=== PATIENT | male | born 2000 | race Caucasian/White ===

== ENCOUNTER 2022-08-22 19:01 | Inpatient (IN) | payer OTHER ==
[~2022-08-22] VITALS: Ht 182.9 cm; Wt 72.3 kg
[2022-08-22] VITALS (13 sets, daily range): BP systolic 112–142; BP diastolic 64–99
[2022-08-22 19:49] LABS: BASO% 0.1 % (0-3); HEMATOCRIT 42.4 % (39.0-50.0); HEMOGLOBIN 15.4 g/dl (14.0-18.0); IMMATURE GRANULOCYTES 0.4 % (0.0-5.0); LYMPH% 3.6 % (15-41); MEAN CELL VOLUME 83.1 fL CALC (80.0-100.0); MEAN CORPUSCULAR HGB 30.2 pG CALC (26.0-32.0); MEAN CORPUSCULAR HGB CONC 36.3 g/dL CAL (32.0-36.0); MONO% 2.4 % (2-13); NEUT# 19.27 thou/uL (1.82-7.42); NEUT% 93.5 % (42-76); RED BLOOD COUNT 5.1 mill/uL (4.70-6.10); RED CELL DISTRI WIDTH 12.1 % (11.5-15.5)
[2022-08-22 20:02] LABS: ALBUMIN 5.7 g/dL (3.2-5.0); ALKALINE PHOSPHATASE 43 u/l (38-126); AMYLASE 51 u/l (30-110); ANION GAP 22 (6-22 (CALC)); BILIRUBIN, TOTAL 1.9 mg/dL (0.2-1.3); BUN 11 mg/dL (9-20); BUN/CREATININE RATIO 15 (12-20 (CALC)); CARBON DIOXIDE 17 mmol/l (22-30); CHLORIDE 103 mmol/l (95-108); CREATININE 0.8 mg/dL (0.7-1.3); GFR FOR AFR.AMER. > 60 ML/MIN (>=60 (CALC)); GFR OTHER RACES > 60 ML/MIN (>=60 (CALC)); LIPASE 20 u/l (23-300); POTASSIUM 3.4 mmol/l (3.5-5.1); SGOT/AST 38 u/l (17-59); SODIUM 139 mmol/l (137-146)
[2022-08-22 21:36] LABS: URINE BILIRUBIN - DIPSTICK NEGATIVE (NEGATIVE); URINE BLOOD DIPSTICK NEGATIVE (NEGATIVE); URINE COLOR YELLOW; URINE GLUCOSE - DIPSTICK NEGATIVE (NEGATIVE); URINE KETONE 15 mg/dL (NEGATIVE); URINE LEUK ESTERASE NEGATIVE (NEGATIVE); URINE PROTEIN - DIPSTICK NEGATIVE (NEG-TRACE); URINE SPECIFIC GRAVITY 1.015; URINE UROBILINOGEN - DIPSTICK 0.2 E.U./dL (0.2)
[2022-08-22 21:42] LABS: URINE NITRITE - DIPSTICK NEGATIVE (Negative)
[2022-08-23] VITALS (22 sets, daily range): BP systolic 119–148; BP diastolic 66–109
[2022-08-23] MEDS ORDERED: SERTRALINE50 MG PO (01:26)
[2022-08-23 10:10] LABS: BASO% 0.1 % (0-3); HEMATOCRIT 40.5 % (39.0-50.0); IMMATURE GRANULOCYTES 0.3 % (0.0-5.0); LYMPH% 10.3 % (15-41); MEAN CELL VOLUME 86.2 fL CALC (80.0-100.0); MEAN CORPUSCULAR HGB 29.8 pG CALC (26.0-32.0); MEAN CORPUSCULAR HGB CONC 34.6 g/dL CAL (32.0-36.0); MONO% 6.7 % (2-13); NEUT# 12.55 thou/uL (1.82-7.42); NEUT% 82.6 % (42-76); RED BLOOD COUNT 4.7 mill/uL (4.70-6.10); RED CELL DISTRI WIDTH 12.6 % (11.5-15.5)
[2022-08-23 10:20] LABS: ALBUMIN 4.8 g/dL (3.2-5.0); ALKALINE PHOSPHATASE 37 u/l (38-126); ANION GAP 13 (6-22 (CALC)); BILIRUBIN, TOTAL 2.2 mg/dL (0.2-1.3); BUN 8 mg/dL (9-20); BUN/CREATININE RATIO 11 (12-20 (CALC)); CARBON DIOXIDE 20 mmol/l (22-30); CHLORIDE 111 mmol/l (95-108); CREATININE 0.8 mg/dL (0.7-1.3); GFR FOR AFR.AMER. > 60 ML/MIN (>=60 (CALC)); GFR OTHER RACES > 60 ML/MIN (>=60 (CALC)); POTASSIUM 3.9 mmol/l (3.5-5.1); SGOT/AST 21 u/l (17-59); SODIUM 139 mmol/l (137-146); TOTAL PROTEIN 7.4 g/dL (6.3-8.2)
[2022-08-24 03:42] VITALS: BP 135/84
[2022-08-24 04:00] VITALS: BP 135/84
[2022-08-24 05:44] LABS: BASO% 0.2 % (0-3); HEMOGLOBIN 13.7 g/dl (14.0-18.0); IMMATURE GRANULOCYTES 0.5 % (0.0-5.0); LYMPH% 7.6 % (15-41); MEAN CELL VOLUME 86.6 fL CALC (80.0-100.0); MEAN CORPUSCULAR HGB 29.7 pG CALC (26.0-32.0); MEAN CORPUSCULAR HGB CONC 34.3 g/dL CAL (32.0-36.0); MONO% 4.6 % (2-13); NEUT# 10.72 thou/uL (1.82-7.42); NEUT% 87.1 % (42-76); RED BLOOD COUNT 4.62 mill/uL (4.70-6.10); RED CELL DISTRI WIDTH 12.8 % (11.5-15.5)
[2022-08-24 06:39] VITALS: BP 108/69
[2022-08-24 07:04] LABS: ALBUMIN 4.9 g/dL (3.2-5.0); ALKALINE PHOSPHATASE 35 u/l (38-126); ANION GAP 15 (6-22 (CALC)); BUN 14 mg/dL (9-20); BUN/CREATININE RATIO 17 (12-20 (CALC)); CARBON DIOXIDE 20 mmol/l (22-30); CHLORIDE 107 mmol/l (95-108); CREATININE 0.8 mg/dL (0.7-1.3); GFR FOR AFR.AMER. > 60 ML/MIN (>=60 (CALC)); GFR OTHER RACES > 60 ML/MIN (>=60 (CALC)); POTASSIUM 3.9 mmol/l (3.5-5.1); SGOT/AST 28 u/l (17-59); SODIUM 138 mmol/l (137-146); TOTAL PROTEIN 7.6 g/dL (6.3-8.2)
[2022-08-24 07:07] LABS: BILIRUBIN, TOTAL 3.3 mg/dL (0.2-1.3)
[2022-08-24 11:19] VITALS: BP 119/72
[2022-08-24 16:46] VITALS: BP 150/85
[2022-08-24 18:56] VITALS: BP 139/85
[2022-08-25 03:52] VITALS: BP 129/79
[2022-08-25 06:03] LABS: BASO% 0.5 % (0-3); EOS% 0.8 % (0-8); HEMATOCRIT 40.1 % (39.0-50.0); IMMATURE GRANULOCYTES 0.9 % (0.0-5.0); LYMPH% 25.1 % (15-41); MEAN CELL VOLUME 86.8 fL CALC (80.0-100.0); MEAN CORPUSCULAR HGB 30.3 pG CALC (26.0-32.0); MEAN CORPUSCULAR HGB CONC 34.9 g/dL CAL (32.0-36.0); MONO% 8.9 % (2-13); NEUT# 6.42 thou/uL (1.82-7.42); NEUT% 63.8 % (42-76); RED BLOOD COUNT 4.62 mill/uL (4.70-6.10); RED CELL DISTRI WIDTH 12.4 % (11.5-15.5)
[2022-08-25 06:26] LABS: ALBUMIN 4.5 g/dL (3.2-5.0); ALKALINE PHOSPHATASE 33 u/l (38-126); ANION GAP 12 (6-22 (CALC)); BILIRUBIN, TOTAL 3.8 mg/dL (0.2-1.3); BUN 13 mg/dL (9-20); BUN/CREATININE RATIO 17 (12-20 (CALC)); CARBON DIOXIDE 22 mmol/l (22-30); CHLORIDE 107 mmol/l (95-108); CREATININE 0.8 mg/dL (0.7-1.3); GFR FOR AFR.AMER. > 60 ML/MIN (>=60 (CALC)); GFR OTHER RACES > 60 ML/MIN (>=60 (CALC)); POTASSIUM 3.4 mmol/l (3.5-5.1); SGOT/AST 23 u/l (17-59); SODIUM 138 mmol/l (137-146)
[2022-08-25 06:40] VITALS: BP 138/81
[2022-08-25 14:52] VITALS: BP 107/50
[2022-08-25 19:11] VITALS: BP 121/77
[2022-08-26 05:08] VITALS: BP 109/69
[2022-08-26 05:47] LABS: BASO% 0.4 % (0-3); EOS% 1.7 % (0-8); HEMATOCRIT 41.6 % (39.0-50.0); HEMOGLOBIN 14.6 g/dl (14.0-18.0); IMMATURE GRANULOCYTES 1.1 % (0.0-5.0); LYMPH% 27.9 % (15-41); MEAN CELL VOLUME 86.8 fL CALC (80.0-100.0); MEAN CORPUSCULAR HGB 30.5 pG CALC (26.0-32.0); MEAN CORPUSCULAR HGB CONC 35.1 g/dL CAL (32.0-36.0); MONO% 8.3 % (2-13); NEUT# 5.54 thou/uL (1.82-7.42); NEUT% 60.6 % (42-76); RED BLOOD COUNT 4.79 mill/uL (4.70-6.10); RED CELL DISTRI WIDTH 12.2 % (11.5-15.5)
[2022-08-26 06:16] VITALS: BP 109/60
[2022-08-26 06:21] LABS: ALBUMIN 4.7 g/dL (3.2-5.0); ALKALINE PHOSPHATASE 30 u/l (38-126); ANION GAP 11 (6-22 (CALC)); BILIRUBIN, TOTAL 3.7 mg/dL (0.2-1.3); BUN 11 mg/dL (9-20); BUN/CREATININE RATIO 14 (12-20 (CALC)); CHLORIDE 103 mmol/l (95-108); CREATININE 0.8 mg/dL (0.7-1.3); GFR FOR AFR.AMER. > 60 ML/MIN (>=60 (CALC)); GFR OTHER RACES > 60 ML/MIN (>=60 (CALC)); POTASSIUM 3.2 mmol/l (3.5-5.1); SGOT/AST 24 u/l (17-59); SODIUM 139 mmol/l (137-146); TOTAL PROTEIN 7.4 g/dL (6.3-8.2)
[2022-08-26 06:23] LABS: CARBON DIOXIDE 28 mmol/l (22-30)
[2022-08-26 14:24] VITALS: BP 121/81
== END 2022-08-26 14:31 | disposition home or self-care (01) | DRG 872 ==
LOC: ED 19:01 → ED-I 08-23 00:29 → ED 08-23 00:54 → MS2 08-23 00:55
PROVIDERS: Emergency Medicine; Nurse Practitioner Family; ADMIT Internal Medicine; ATTEND Internal Medicine
DX: A41.9 Sepsis, unspecified organism (principal); E87.20 Acidosis, unspecified; R11.2 Nausea with vomiting, unspecified; F12.90 Cannabis use, unspecified, uncomplicated; Z20.822 Contact with and (suspected) exposure to COVID-19
CPT/HCPCS: Q9967; S0164

== ENCOUNTER 2022-11-11 20:17 | Emergency (ER) | payer OTHER ==
[~2022-11-11] VITALS: Ht 182.9 cm; Wt 58.0 kg
[2022-11-11] VITALS (10 sets, daily range): BP systolic 113–136; BP diastolic 64–91
[~2022-11-11 20:17] MED LIST: SERTRALINE50 MG PO
[2022-11-11 21:49] LABS: BASO% 0.2 % (0-3); IMMATURE GRANULOCYTES 0.4 % (0.0-5.0); LYMPH% 6.2 % (15-41); MEAN CELL VOLUME 84.5 fL CALC (80.0-100.0); MEAN CORPUSCULAR HGB 28.9 pG CALC (26.0-32.0); MEAN CORPUSCULAR HGB CONC 34.2 g/dL CAL (32.0-36.0); MONO% 4.1 % (2-13); NEUT# 15.13 thou/uL (1.82-7.42); NEUT% 89.1 % (42-76); RED BLOOD COUNT 5.74 mill/uL (4.70-6.10); RED CELL DISTRI WIDTH 11.9 % (11.5-15.5)
[2022-11-11 21:52] LABS: HEMATOCRIT 48.5 % (39.0-50.0); HEMOGLOBIN 16.6 g/dl (14.0-18.0)
[2022-11-11 21:59] LABS: ALBUMIN 5.4 g/dL (3.2-5.0); ALKALINE PHOSPHATASE 52 u/l (38-126); AMYLASE 55 u/l (30-110); ANION GAP 20 (6-22 (CALC)); BILIRUBIN, TOTAL 1.9 mg/dL (0.2-1.3); BUN 10 mg/dL (9-20); BUN/CREATININE RATIO 11 (12-20 (CALC)); CARBON DIOXIDE 19 mmol/l (22-30); CHLORIDE 104 mmol/l (95-108); CREATININE 0.9 mg/dL (0.7-1.3); GFR FOR AFR.AMER. > 60 ML/MIN (>=60 (CALC)); GFR OTHER RACES > 60 ML/MIN (>=60 (CALC)); LIPASE 32 u/l (23-300); POTASSIUM 3.6 mmol/l (3.5-5.1); SGOT/AST 30 u/l (17-59); SODIUM 139 mmol/l (137-146); TOTAL PROTEIN 8.9 g/dL (6.3-8.2)
[2022-11-11] MEDS ORDERED: COMPAZINE10 MG PO (23:47)
[2022-11-11] MEDS ORDERED: DICYCLOMINE10 MG PO (23:47)
[2022-11-12] VITALS: BP 110/64
== END 2022-11-12 00:07 | disposition home or self-care (01) ==
LOC: ED 20:17
PROVIDERS: Family Medicine
DX: R11.2 Nausea with vomiting, unspecified (principal); F12.10 Cannabis abuse, uncomplicated
CPT/HCPCS: S0164

== ENCOUNTER 2023-01-17 04:09 | Emergency (ER) | payer SELFPAY ==
[~2023-01-17] VITALS: Ht 182.9 cm; Wt 72.8 kg
[~2023-01-17 04:09] MED LIST changes: +COMPAZINE10 MG PO; +DICYCLOMINE10 MG PO
[2023-01-17] MEDS ORDERED: OMEPRAZOLE20 MG PO (04:24)
[2023-01-17 05:02] LABS: BASO% 0.3 % (0-3); EOS% 0.3 % (0-8); HEMATOCRIT 43.7 % (39.0-50.0); HEMOGLOBIN 15.3 g/dl (14.0-18.0); IMMATURE GRANULOCYTES 0.4 % (0.0-5.0); LYMPH% 18.1 % (15-41); MEAN CELL VOLUME 83.6 fL CALC (80.0-100.0); MEAN CORPUSCULAR HGB 29.3 pG CALC (26.0-32.0); MONO% 8.3 % (2-13); NEUT# 8.44 thou/uL (1.82-7.42); NEUT% 72.6 % (42-76); RED BLOOD COUNT 5.23 mill/uL (4.70-6.10); RED CELL DISTRI WIDTH 12.1 % (11.5-15.5)
[2023-01-17 05:06] LABS: ALBUMIN 5.4 g/dL (3.2-5.0); ALKALINE PHOSPHATASE 42 u/l (38-126); ANION GAP 20 (6-22 (CALC)); BUN 14 mg/dL (9-20); BUN/CREATININE RATIO 15 (12-20 (CALC)); CARBON DIOXIDE 22 mmol/l (22-30); CHLORIDE 97 mmol/l (95-108); CREATININE 0.9 mg/dL (0.7-1.3); GFR FOR AFR.AMER. > 60 ML/MIN (>=60 (CALC)); GFR OTHER RACES > 60 ML/MIN (>=60 (CALC)); LIPASE 21 u/l (23-300); POTASSIUM 3.4 mmol/l (3.5-5.1); SGOT/AST 27 u/l (17-59); SODIUM 136 mmol/l (137-146); TOTAL PROTEIN 8.5 g/dL (6.3-8.2)
[2023-01-17 05:18] LABS: BILIRUBIN, TOTAL 3.7 mg/dL (0.2-1.3)
[2023-01-17] MEDS ORDERED: DICYCLOMINE10 MG PO (06:52)
[2023-01-17] MEDS ORDERED: PHENERGAN25 MG RE (06:52)
[2023-01-17 07:35] VITALS: BP 133/90
== END 2023-01-17 07:40 | disposition home or self-care (01) | DRG 392 ==
LOC: ED 04:09
PROVIDERS: Family Medicine
DX: R11.2 Nausea with vomiting, unspecified (principal); F12.90 Cannabis use, unspecified, uncomplicated
CPT/HCPCS: S0164

== ENCOUNTER 2023-02-09 08:17 | Emergency (ER) | payer SELFPAY ==
[~2023-02-09] VITALS: Ht 182.9 cm; Wt 70.3 kg
[2023-02-09] VITALS (10 sets, daily range): BP systolic 108–139; BP diastolic 66–88
[~2023-02-09 08:17] MED LIST changes: +OMEPRAZOLE DR40 MG PO; +OMEPRAZOLE20 MG PO; +PHENERGAN25 MG RE
[2023-02-09 09:02] LABS: BASO% 0.2 % (0-3); EOS% 0.1 % (0-8); HEMATOCRIT 46.8 % (39.0-50.0); HEMOGLOBIN 16.1 g/dl (14.0-18.0); IMMATURE GRANULOCYTES 0.6 % (0.0-5.0); LYMPH% 13.2 % (15-41); MEAN CELL VOLUME 83.1 fL CALC (80.0-100.0); MEAN CORPUSCULAR HGB 28.6 pG CALC (26.0-32.0); MEAN CORPUSCULAR HGB CONC 34.4 g/dL CAL (32.0-36.0); NEUT# 9.67 thou/uL (1.82-7.42); NEUT% 78.9 % (42-76); RED BLOOD COUNT 5.63 mill/uL (4.70-6.10)
[2023-02-09 09:31] LABS: ALBUMIN 5.3 g/dL (3.2-5.0); ALKALINE PHOSPHATASE 40 u/l (38-126); ANION GAP 16 (6-22 (CALC)); BUN 13 mg/dL (9-20); BUN/CREATININE RATIO 14 (12-20 (CALC)); CHLORIDE 96 mmol/l (95-108); CREATININE 0.9 mg/dL (0.7-1.3); GFR FOR AFR.AMER. > 60 ML/MIN (>=60 (CALC)); GFR OTHER RACES > 60 ML/MIN (>=60 (CALC)); LIPASE 18 u/l (23-300); POTASSIUM 3.3 mmol/l (3.5-5.1); SGOT/AST 43 u/l (17-59); SODIUM 136 mmol/l (137-146); TOTAL PROTEIN 8.7 g/dL (6.3-8.2)
[2023-02-09 09:37] LABS: CARBON DIOXIDE 27 mmol/l (22-30)
[2023-02-09 09:54] LABS: URINE BILIRUBIN - DIPSTICK NEGATIVE (NEGATIVE); URINE BLOOD DIPSTICK NEGATIVE (NEGATIVE); URINE COLOR YELLOW; URINE GLUCOSE - DIPSTICK NEGATIVE (NEGATIVE); URINE KETONE Negative (NEGATIVE); URINE LEUK ESTERASE NEGATIVE (NEGATIVE); URINE NITRITE - DIPSTICK NEGATIVE (Negative); URINE PROTEIN - DIPSTICK NEGATIVE (NEG-TRACE); URINE SPECIFIC GRAVITY 1.015; URINE UROBILINOGEN - DIPSTICK 0.2 E.U./dL (0.2)
== END 2023-02-09 11:58 | disposition home or self-care (01) | DRG 392 ==
LOC: ED 08:17
PROVIDERS: Family Medicine
DX: R11.2 Nausea with vomiting, unspecified (principal); F12.10 Cannabis abuse, uncomplicated; Z20.822 Contact with and (suspected) exposure to COVID-19

== ENCOUNTER 2023-03-19 07:31 | Emergency (ER) | payer SELFPAY ==
[~2023-03-19] VITALS: Ht 182.9 cm; Wt 68.0 kg
[2023-03-19] VITALS (16 sets, daily range): BP systolic 110–143; BP diastolic 64–93
[2023-03-19 08:09] LABS: BASO% 0.2 % (0-3); EOS% 0.1 % (0-8); HEMATOCRIT 45.1 % (39.0-50.0); HEMOGLOBIN 16.4 g/dl (14.0-18.0); IMMATURE GRANULOCYTES 0.3 % (0.0-5.0); MEAN CELL VOLUME 81.9 fL CALC (80.0-100.0); MEAN CORPUSCULAR HGB 29.8 pG CALC (26.0-32.0); MEAN CORPUSCULAR HGB CONC 36.4 g/dL CAL (32.0-36.0); MONO% 8.3 % (2-13); NEUT# 10.53 thou/uL (1.82-7.42); NEUT% 82.1 % (42-76); RED BLOOD COUNT 5.51 mill/uL (4.70-6.10)
[2023-03-19 08:51] LABS: ALBUMIN 5.2 g/dL (3.2-5.0); ALKALINE PHOSPHATASE 42 u/l (38-126); ANION GAP 19 (6-22 (CALC)); BILIRUBIN, TOTAL 3.2 mg/dL (0.2-1.3); BUN 13 mg/dL (9-20); BUN/CREATININE RATIO 15 (12-20 (CALC)); CARBON DIOXIDE 22 mmol/l (22-30); CHLORIDE 95 mmol/l (95-108); CREATININE 0.8 mg/dL (0.7-1.3); GFR FOR AFR.AMER. > 60 ML/MIN (>=60 (CALC)); GFR OTHER RACES > 60 ML/MIN (>=60 (CALC)); LIPASE 16 u/l (23-300); POTASSIUM 3.5 mmol/l (3.5-5.1); SGOT/AST 29 u/l (17-59); SODIUM 132 mmol/l (137-146); TOTAL PROTEIN 8.5 g/dL (6.3-8.2)
[2023-03-19 09:41] LABS: URINE BILIRUBIN - DIPSTICK Negative (NEGATIVE); URINE BLOOD DIPSTICK Negative (NEGATIVE); URINE GLUCOSE - DIPSTICK Negative (NEGATIVE); URINE KETONE Trace mg/dL (NEGATIVE); URINE LEUK ESTERASE Negative (NEGATIVE); URINE NITRITE - DIPSTICK Negative (Negative); URINE PROTEIN - DIPSTICK Negative (NEG-TRACE); URINE UROBILINOGEN - DIPSTICK 0.2 E.U./dL (0.2)
[2023-03-19 09:42] LABS: URINE COLOR Yellow
[2023-03-19] MEDS ORDERED: OMEPRAZOLE DR40 MG PO (10:34)
[2023-03-19] MEDS ORDERED: PROMETHAZINE HY25 M1 PO (10:34)
== END 2023-03-19 11:27 | disposition home or self-care (01) | DRG 392 ==
LOC: ED 07:31
PROVIDERS: Family Medicine
DX: R10.84 Generalized abdominal pain (principal); Z20.822 Contact with and (suspected) exposure to COVID-19
CPT/HCPCS: Q9967; S0164

== ENCOUNTER 2023-08-23 12:58 | Emergency (ER) | payer SELFPAY ==
[~2023-08-23] VITALS: Ht 182.9 cm; Wt 73.0 kg
[2023-08-23] VITALS (13 sets, daily range): BP systolic 112–137; BP diastolic 63–96
[~2023-08-23 12:58] MED LIST changes: +PROMETHAZINE HY25 M1 PO
[2023-08-23 13:40] LABS: BASO% 0.1 % (0-3); EOS% 0.3 % (0-8); HEMATOCRIT 47.5 % (39.0-50.0); HEMOGLOBIN 16.8 g/dl (14.0-18.0); IMMATURE GRANULOCYTES 0.6 % (0.0-5.0); LYMPH% 15.7 % (15-41); MEAN CELL VOLUME 82.8 fL CALC (80.0-100.0); MEAN CORPUSCULAR HGB 29.3 pG CALC (26.0-32.0); MEAN CORPUSCULAR HGB CONC 35.4 g/dL CAL (32.0-36.0); MONO% 11.6 % (2-13); NEUT# 10.16 thou/uL (1.82-7.42); NEUT% 71.7 % (42-76); RED BLOOD COUNT 5.74 mill/uL (4.70-6.10); RED CELL DISTRI WIDTH 11.8 % (11.5-15.5)
[2023-08-23 13:48] LABS: ALBUMIN 5.3 g/dL (3.2-5.0); ALKALINE PHOSPHATASE 42 u/l (38-126); ANION GAP 15 (6-22 (CALC)); BILIRUBIN, TOTAL 3.2 mg/dL (0.2-1.3); BUN 14 mg/dL (9-20); BUN/CREATININE RATIO 17 (12-20 (CALC)); CARBON DIOXIDE 26 mmol/l (22-30); CHLORIDE 94 mmol/l (95-108); CREATININE 0.8 mg/dL (0.7-1.3); GFR FOR AFR.AMER. > 60 ML/MIN (>=60 (CALC)); GFR OTHER RACES > 60 ML/MIN (>=60 (CALC)); LIPASE 22 u/l (23-300); POTASSIUM 3.4 mmol/l (3.5-5.1); SGOT/AST 26 u/l (17-59); SODIUM 132 mmol/l (137-146); TOTAL PROTEIN 8.3 g/dL (6.3-8.2)
[2023-08-23 15:31] LABS: URINE BILIRUBIN - DIPSTICK Negative (NEGATIVE); URINE BLOOD DIPSTICK Negative (NEGATIVE); URINE COLOR Yellow; URINE GLUCOSE - DIPSTICK Negative (NEGATIVE); URINE KETONE Negative (NEGATIVE); URINE LEUK ESTERASE Negative (NEGATIVE); URINE NITRITE - DIPSTICK Negative (Negative); URINE PROTEIN - DIPSTICK Negative (NEG-TRACE)
[2023-08-23] MEDS ORDERED: REGLAN10 MG PO (16:35)
[2023-08-23] MEDS ORDERED: PHENERGAN25 MG RE (16:35)
== END 2023-08-23 16:55 | disposition home or self-care (01) | DRG 392 ==
LOC: ED 12:58
PROVIDERS: Family Medicine
DX: R11.2 Nausea with vomiting, unspecified (principal); F12.90 Cannabis use, unspecified, uncomplicated
CPT/HCPCS: S0164

== ENCOUNTER 2023-09-23 15:51 | Emergency (ER) | payer SELFPAY ==
[~2023-09-23 15:51] MED LIST changes: +REGLAN10 MG PO
== END 2023-09-23 17:15 | disposition left against medical advice (07) | DRG 951 ==
LOC: ED 15:51 → LWOBS 17:14 → ED 17:14
DX: Z53.21 Procedure and treatment not carried out due to patient leaving prior to being seen by health care provider (principal)

== ENCOUNTER 2024-07-30 16:58 | Emergency (ER) | payer OTHER ==
[2024-07-30] VITALS (17 sets, daily range): BP systolic 97–137; BP diastolic 42–96
[~2024-07-30] VITALS: Ht 180.3 cm; Wt 72.5 kg
[2024-07-30] MEDS ORDERED: KETOROLAC TROMETHAMINE 30 MG/ML SDV IV STA (19:32)
[2024-07-30] MEDS ORDERED: SODIUM CHLORIDE 0.9% 1,000 ML IV STA (19:32)
[2024-07-30] MEDS ORDERED: METOCLOPRAMIDE HCL 10 MG/2 ML SDV IV ONE (19:35)
[2024-07-30 19:50] LABS: HEMATOCRIT 47.4 % (39.0-50.0); HEMOGLOBIN 16.7 g/dl (14.0-18.0); IMMATURE GRANULOCYTES 0.5 % (0.0-5.0); LYMPH% 3.9 % (15-41); MEAN CELL VOLUME 81.9 fL CALC (80.0-100.0); MEAN CORPUSCULAR HGB 28.8 pG CALC (26.0-32.0); MEAN CORPUSCULAR HGB CONC 35.2 g/dL CAL (32.0-36.0); MONO% 2.5 % (2-13); NEUT# 22.65 thou/uL (1.82-7.42); NEUT% 93.1 % (42-76); RED BLOOD COUNT 5.79 mill/uL (4.70-6.10); RED CELL DISTRI WIDTH 12.3 % (11.5-15.5)
[2024-07-30] MEDS ORDERED: SODIUM CHLORIDE 0.9% 1,000 ML IV ONE (20:15)
[2024-07-30 20:19] LABS: ALKALINE PHOSPHATASE 45 u/l (38-126); BILIRUBIN, TOTAL 1.5 mg/dL (0.2-1.3); BUN 23 mg/dL (9-20); BUN/CREATININE RATIO 18 (12-20 (CALC)); CARBON DIOXIDE 23 mmol/l (22-30); CHLORIDE 100 mmol/l (95-108); CREATININE 1.3 mg/dL (0.7-1.3); ESTIMATED GFR 79 ML/MIN (>=90 (CALC)); LIPASE 25 u/l (23-300); POTASSIUM 4.4 mmol/l (3.5-5.1); SGOT/AST 31 u/l (17-59)
[2024-07-30 20:37] LABS: ALBUMIN > 6.0 g/dL (3.2-5.0); ANION GAP 25 (6-22 (CALC)); SODIUM 144 mmol/l (137-146); TOTAL PROTEIN 10.3 g/dL (6.3-8.2)
[2024-07-30] MEDS ORDERED: PROMETHAZINE12.5 MG PO (22:43)
[2024-07-30] MEDS ORDERED: METRONIDAZOLE500 MG PO (22:45)
[2024-07-30] MEDS ORDERED: CIPROFLOXACN500 MG PO (22:45)
[2024-07-30 22:53] LABS: URINE BILIRUBIN - DIPSTICK Negative (NEGATIVE); URINE BLOOD DIPSTICK Negative (NEGATIVE); URINE GLUCOSE - DIPSTICK Negative (NEGATIVE); URINE KETONE 15 mg/dL (NEGATIVE); URINE LEUK ESTERASE Negative (NEGATIVE); URINE NITRITE - DIPSTICK Negative (Negative); URINE PH 6.5 (4.5-8.0); URINE PROTEIN - DIPSTICK 100 mg/dL (NEG-TRACE); URINE UROBILINOGEN - DIPSTICK 0.2 E.U./dL (0.2)
[2024-07-30 22:54] LABS: URINE COLOR Yellow
[2024-07-30 23:01] LABS: URINE HYALINE CAST FEW lpf (NONE-RARE); URINE SQUAMOUS EPITHELIAL CELL RARE EPI/hpf (0-FEW)
[2024-07-31] VITALS: BP 97/57
[2024-07-31 00:15] VITALS: BP 103/65
[2024-07-31 00:30] VITALS: BP 100/62
[2024-07-31 00:45] VITALS: BP 107/71
[2024-07-31 01:15] VITALS: BP 107/71
== END 2024-07-31 01:15 | disposition home or self-care (01) | DRG 392 ==
LOC: ED 16:58
PROVIDERS: Family Medicine
DX: R11.2 Nausea with vomiting, unspecified (principal); F12.10 Cannabis abuse, uncomplicated; D72.829 Elevated white blood cell count, unspecified; R10.31 Right lower quadrant pain
CPT/HCPCS: J0744; J1836; J2765; Q9967